=== PATIENT | male | born 1995 | race African-American/Black ===

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

== ENCOUNTER 2017-11-19 15:01 | Emergency (ER) | payer MEDICAID ==
[~2017-11-19] VITALS: Ht 170.2 cm; Wt 51.8 kg
[2017-11-19] MEDS ORDERED: LEVAHFA IH (15:16)
[2017-11-19 16:49] VITALS: BP 145/85
== END 2017-11-19 17:14 | disposition home or self-care (01) ==
LOC: EMS 15:01
DX: S00.81XA Abrasion of other part of head, initial encounter (principal); S46.911A Strain of unspecified muscle, fascia and tendon at shoulder and upper arm level, right arm, initial encounter; J45.909 Unspecified asthma, uncomplicated; Z79.899 Other long term (current) drug therapy; Y04.0XXA Assault by unarmed brawl or fight, initial encounter; Y93.89 Activity, other specified; Y92.89 Other specified places as the place of occurrence of the external cause; Y99.8 Other external cause status
CPT/HCPCS: 99281

== ENCOUNTER 2021-03-21 21:02 | Emergency (ER) | payer MEDICAID, OTHER ==
[~2021-03-21] VITALS: Ht 167.6 cm; Wt 59.1 kg
[~2021-03-21 21:02] MED LIST: LEVAHFA IH
[2021-03-21] MEDS ORDERED: ALBUTEROL SULFATE HFA 90 MCG/PUFF 8 GM INHALER IH ONE (22:30)
[2021-03-21 22:41] VITALS: BP 113/72
[2021-03-21 22:58] LABS: COVID AG,FIA SOURCE NASOPHARYNGEAL
[2021-03-21 23:26] LABS: INFLUENZA TYPE A NEGATIVE FOR TYPE A (NEGATIVE); INFLUENZA TYPE B NEGATIVE FOR TYPE B (NEGATIVE)
== END 2021-03-21 23:00 | disposition home or self-care (01) ==
LOC: EMS 22:44
DX: J45.909 Unspecified asthma, uncomplicated (principal); Z20.822 Contact with and (suspected) exposure to COVID-19
CPT/HCPCS: 87426; 87804; 94640; 99283; U0003; J3535

== ENCOUNTER 2021-10-01 03:45 | Emergency (ER) | payer OTHER ==
[~2021-10-01] VITALS: Ht 165.1 cm; Wt 63.6 kg
[2021-10-01] MEDS ORDERED: IPRATROPIUM BROMIDE 0.5 MG/2.5 ML NEB SOLUTION NEB ONE (04:15)
[2021-10-01] MEDS ORDERED: ALBUTEROL SULFATE 5 MG/ML 20 ML NEB SOLN [BULK] NEB ONE (04:15)
[2021-10-01 05:31] VITALS: BP 117/71
== END 2021-10-01 05:33 | disposition home or self-care (01) ==
LOC: EMS 03:45
DX: J45.901 Unspecified asthma with (acute) exacerbation (principal); F12.90 Cannabis use, unspecified, uncomplicated
CPT/HCPCS: 99283